=== PATIENT | female | born 1965 | race Two or more races ===

== ENCOUNTER 2025-09-06 15:59 | Inpatient (IN) | payer MEDICAID, SELFPAY ==
[2025-09-06 16:47] VITALS: BP 94/61; PULSE 89; RESP 20; TEMP 37.7; O2SAT 98; BMI 25.0
--- NOTE | 2025-09-06 17:53 | EKG_ITS ---
[facility] Test Date: 2025-09-06 Pat Name: NARGIS CABRALES Department: Room: - Gender: Female Digital Designer: : 1965 Requested By: Ashley Valdez Order Number: [id number] Reading MD: Ashley Valdez Measurements Intervals Lyman Rate: 86 P: 49 CO: 134 QRS: 65 QRSD: 89 T: 59 QT: 335 QTc: 401 Interpretive Statements SINUS RHYTHM Compared to ECG 04/07/2022 22:22:05 No significant changes /store/S0/[id number].pdf
--- NOTE | 2025-09-06 17:53 | XR_ITS ---
EXAMINATION: AP chest single view TECHNIQUE: AP portable semiupright chest single view Date and time: September 06, 2025, 1844 hours, comparison April 07, 2022 INDICATION: Chest pain shortness of breath today. FINDINGS: Normal heart size Mild elevation right hemidiaphragm. No lobar pneumonia or pulmonary edema Prominent osteopenia The chest film is lordotic IMPRESSION: No lobar pneumonia or pulmonary edema
--- NOTE | 2025-09-06 17:55 | PD.EDURI ---
Upper Respiratory Inf. RME/HPI General Chief Complaint: Flu Like Symptoms Stated Complaint: ABD PAIN , N/V CHILLS, DIARRHEA, HEADACHE X 2 DAYS Time Seen by Provider: 09/06/25 17:38 Arrival date/time: 09/06/25 15:59 60-year-old female patient with significant history of hypertension, came in for evaluation regarding lower abdominal pain, fever chills diarrhea headache generalized weakness cannot take anything down severity moderate. Denies any blood in the stool denies any cough denies any other complaints Related Data Previous Rx's ?Medication ?Instructions ?Recorded sulfamethoxazole 800 1 tab PO BID #14 tabs 05/28/21 mg-trimethoprim 160 mg tablet (Bactrim DS) Allergies Allergy/AdvReac Type Severity Reaction Status Date / Time No Known Allergies Allergy Verified 09/06/25 16:01 Review of Systems Review of Systems Narrative Review of Systems: Review of system reviewed and within normal limits except mentioned in HPI ED Exam Narrative Physical exam: VITAL SIGNS: Reviewed. GENERAL APPEARANCE: Alert and interactive, follows commands, no acute distress, HEAD AND FACE: Non-traumatic. ENT: PERRL, pink conjunctivitis, eyelid no trauma, Mucous membrane moist. NECK: Supple, nontender, no nuchal rigidity. CHEST: No tenderness, no crepitus, no paradoxical movement, no retractions. LUNGS: Clear, well ventilated, symmetric, no rales, no wheezing, no ronchi, no stridor, good breath sounds bilaterally. HEART: Regular rate, regular rhythm, no murmur, no gallops. ABDOMEN: Soft, positive bowel sounds, nondistended, no guarding, diffuse tenderness, no rebound, no masses, RECTAL: Deferred. GENITAL: Deferred. NEUROLOGICAL: Gross motor function intact sensory function intact, Appropriate for age. MUSCULOSKELETAL: low back nontender, full range of motion. EXTREMITIES: Nontender, full range of motion. SKIN: Color pink, dry, no rash, no lacerations, no abrasions, no contusions. LYMPHATICS: Deferred. Course Quality Measures none Orders Category Date Time Status COVID-19 Screening Questionnaire NOW Care 09/06/25 22:[address] Screening NOW Care 09/06/25 18:06 Active Decision to Admit X1 Care 09/06/25 22:17 Active EKG (ED ONLY) *Do not use* NOW Care 09/06/25 17:54 Completed Fluid restriction QSHIFT Care 09/06/25 18:46 Active Insert IV NOW Care 09/06/25 18:[address] chest abdomen pelvis wo Stat Exams 09/06/25 18:41 Completed EKG (ED Only) Stat Exams 09/06/25 17:53 Draft XR chest 1V Stat Exams 09/06/25 17:53 Completed CBC Stat Lab 09/06/25 18:02 Completed Comprehensive Metabolic Panel Stat Lab 09/06/25 18:02 Completed Creatinine,Random Urine Stat Lab 09/06/25 21:22 Completed Electrolytes, Urine Random Stat Lab 09/06/25 21:22 Completed Hemoglobin A1C [Glycohemoglobin w (eAG)] Stat Lab 09/06/25 22:08 Received Osmolality, Urine* Routine Lab 09/06/25 21:22 Received Partial Thromboplastin Time Stat Lab 09/06/25 18:02 [address] Review Blood Smear Stat Lab 09/06/25 18:02 Completed T4 (Thyroxine) Stat Lab 09/06/25 18:02 Completed Thyroid Stimulating Hormone Stat Lab 09/06/25 18:02 Completed Troponin I Stat Lab 09/06/25 18:02 Completed Troponin I Stat Lab 09/06/25 22:08 Received Urinalysis, C/S if Indicated Stat Lab 09/06/25 21:22 Completed Urine Culture Stat Lab 09/06/25 21:22 Received Ondansetron Inj [Zofran Inj] Med 09/06/25 17:53 Discontinued 4 mg IVP X1 ONE Piper/Tazo 3.375 gm Premix [Zosyn] Med 09/06/25 18:49 Discontinued 3.375 gm in 50 ml IV X1 Ringers Lactated 1000 ml [Lactated Ringers] 1,000 ml Med 09/06/25 17:54 Discontinued IV 999 mls/hr Sodium Chloride 0.9% 1000 ml [Ns] 1,000 ml Med 09/06/25 20:55 Active IV 125 mls/hr Sodium Chloride 0.9% 1000 ml [Ns] 1,000 ml Med 09/06/25 18:41 Discontinued IV 999 mls/hr Vital Signs Vital signs: Vital Signs Temperature 100 F 09/06/25 16:47 Pulse Rate 89 09/06/25 16:47 Respiratory Rate 20 09/06/25 16:47 Blood Pressure 94/61 09/06/25 16:47 Pulse Oximetry (%) 98 09/06/25 16:47 Oxygen Delivery Method Room Air 09/06/25 16:47 Upper Respiratory Infection MDM Narrative MDM Narrative:: 60-year-old female patient with significant history of hypertension, came in for evaluation regarding lower abdominal pain, fever chills diarrhea headache generalized weakness cannot take anything down severity moderate. Denies any blood in the stool denies any cough denies any other complaints Sepsis alert was initiated due to leukocytosis, low-grade fever, UTI EKG shows sinus rhythm, ventricular rate of 86 bpm, no ST segment elevation or depression noted. CBC significant for leukocytosis 36.7, hemoglobin 10.9 hematocrit 29.9 platelet count 104 neutropenia of 88% creatinine was noted to be 3.0, glucose of 342, sodium of 118 corrected sodium 122. I personally reviewed and interpreted the x-ray of this patient. There is no acute abnormalities found, no infiltrates no pneumothorax no hemothorax normal chest x-ray. Review of other structures was without significant abnormal findings also. I additionally reviewed the radiologist report and agree with the interpretation. CT scan of the abdomen pelvis showed Small calcified right thyroid nodules No mediastinal lymphadenopathy No pneumonia or pulmonary edema Recommend hepatobiliary sonography to exclude gallstones 2 mm nonobstructing right renal calculus Perinephric stranding consider urinary tract infection Normal appendix No bowel obstruction Thickening of the urinary bladder wall, differential would include cystitis Patient was given 1 L IV LR, and was also given IV Zosyn. Currently on maintenance IV NS at 125 mL an hour. Plan of care discussed with the patient family who advised to be admitted. Case discussed with hospitalist, who admitted the patient. Patient data External records reviewed:: None Clinical information provided by:: patient and family Social determinants that could affect healthcare access:: none Patient has the following chronic illnesses:: Hypertension How is presenting disease/condition affected by chronic disease/condition?: exacerbated by Evaluation data The following diagnostics were reviewed and interpreted by me:: lab results, radiology exam(s) and EKG tracing(s) Lab and/or radiology exams considered but not ordered:: None Interpretation Summary: See above Medications / Prescriptions Medications or Prescriptions considered but not ordered:: None Medication administrations:: Medication Administration History Sodium Chloride (Ns) 1,000 mls @ 125 mls/hr IV .Q8H TEJAS Stop: 10/06/25 20:54 Last Admin: 09/06/25 21:22 Dose: 125 mls/hr Documented By: CHARLES Discontinued Medications Lactated Ringer's (Lactated Ringers) 1,000 mls @ 999 mls/hr IV .Q1H1M ONE Stop: 09/06/25 18:54 Last Infusion: 09/06/25 19:22 Dose: Infused Documented By: Admin: 09/06/25 18:19 Dose: 999 mls/hr Documented By: MEAGAN Sodium Chloride (Ns) 1,000 mls @ 999 mls/hr IV .Q1H1M ONE Stop: 09/06/25 19:41 Last Admin: 09/06/25 18:55 Dose: Not Given Documented By: ELIEL Non-Admin Reason: Cancelled by Provider Piperacillin/Tazobactam/Dextrose (Zosyn) 3.375 gm in 50 mls @ 100 mls/hr IV X1 ONE; Protocol Stop: 09/06/25 19:18 Last Infusion: 09/06/25 20:03 Dose: Infused Documented By: Admin: 09/06/25 18:56 Dose: 100 mls/hr Documented By: ELIEL Ondansetron HCl (Ondansetron Inj 2 Mg/Ml Inj 2 Ml) 4 mg IVP X1 ONE; Protocol Stop: 09/06/25 17:54 Last Admin: 09/06/25 18:17 Dose: 4 mg Documented By: MEAGAN See above Consultations Consultation(s) initiated? (list below): No Diagnosis Upper Respiratory Differential Diagnosis: upper respiratory infection, viral infection and other (Sepsis, UTI, hyponatremia) Most likely diagnosis given after review of the tests above:: CHRISTINE, hyponatremia, sepsis, UTI Admission Indicated Admission indicated?: indicated Admission Request Was there a request for admission?: Yes Admission Attestation Admission request attestation: Discussed case with [Dr. Rocha] from Hospitalist service regarding admission. Discussed patients ED course, exam findings, labs, and radiology results. The Hospitalist [agrees,] to accept the patient for admission. Disposition Plan Disposition Plan: Admit Discharge Plan Plan Patient Disposition: Admit Acute Care w/in Hospital Discharge Disposition comment: Stable Prescriptions/Referrals Prescriptions/Med Rec: No Action sulfamethoxazole-trimethoprim [Bactrim DS] 800-160 mg tablet 1 tab PO BID Qty: 14 0RF Referrals: No Primary/Family,Physician [Primary Care Provider] - In 1 week Problem List Clinical Impression: Sepsis, UTI (urinary tract infection), Acute hyponatremia Patient/Caregiver Discharge Instructions Print Language: Citizen Of [place] Stand Alone Forms: Heather Award Info., Patient Portal Info Letter
[2025-09-06] MEDS: ONDANSETRON INJ 2 MG/ML INJ 2 ML 4 MG IVP (18:17)
[2025-09-06 18:18] LABS: Basophils # (Auto) 0.0 Thou/mm3 (0.0-0.2); Basophils % (Auto) 0 % (0-2.5); Eosinophils # (Auto) 0.0 Thou/mm3 (0.0-0.5); Eosinophils % (Auto) 0 % (0-10); Hematocrit 29.9 % (36.0-46.0); Hemoglobin 10.9 g/dL (12.0-16.0); Immature Granulocytes Auto 1.99 Thou/mm3 (0.00-0.00); Lymphocytes # (Auto) 0.8 Thou/mm3 (1.0-4.8); Lymphocytes % (Auto) 2 % (10-50); Mean Corpuscular HGB Conc 36.5 g/dl (31.0-37.0); Mean Corpuscular Hemoglobin 32.1 pg (25.0-35.0); Mean Corpuscular Volume 88 fL (80-100); Monocytes # (Auto) 1.7 Thou/mm3 (0.0-0.8); Monocytes % (Auto) 5 % (0-12); Neutrophils # (Auto) 32.3 Thou/mm3 (1.8-7.7); Neutrophils % (Auto) 88 % (37-80); Nucleated Red Blood Cell # 0.02 Thou/mm3 (0.00-0.00); Nucleated Red Blood Cell % 0 /100 WBC (0); Platelet Count 104 Thou/mm3 (140-440); RDW Standard Deviation 36.9 fL (36.4-46.3); Red Blood Count 3.40 Miln/mm3 (4.00-5.20)
[2025-09-06] MEDS: RINGERS LACTATED 1000 ML 1,000 ML 999 ML IV (18:19)
[2025-09-06 18:24] LABS: Partial Thromboplastin Time 36.4 Seconds (22.0-36.0)
[2025-09-06 18:27] LABS: White Blood Count 36.7 Thou/mm3 (3.6-11.0)
[2025-09-06 18:30] LABS: Path Review Blood Smear Sent to Pathologist
[2025-09-06 18:31] LABS: Alanine Aminotransferase 14 U/L (10-49); Albumin, Serum 3.5 gm/dL (3.4-4.8); Albumin/Globulin Ratio 1.5 (1.2-2.2); Alkaline Phosphatase 102 U/L (46-116); Anion Gap 12 (7-16); Aspartate Amino Transferase 21 U/L (0-34); BUN/Creatinine Ratio 15 Ratio (12-20); Bilirubin,Total 0.6 mg/dL (0.3-1.2); Blood Urea Nitrogen 45 mg/dL (9-23); Calcium 8.4 mg/dL (8.3-10.6); Calcium (Corrected) 8.8 mg/dL (8.5-10.1); Carbon Dioxide 21.5 mMol/L (20.0-31.0); Chloride 85 mMol/L (98-107); Creatinine (Component) 3.0 mg/dL (0.6-1.3); Estimated Creatinine Clearance 15.9 mL/min (>60); Globulin 2.4 gm/dL (2.3-3.5); Glucose 342 mg/dL (74-106); Osmolality,Calculated 263 (275-295); Potassium 5.1 mMol/L (3.4-5.1); Total Protein 5.9 gm/dL (5.7-8.2); eGFR 17 See Note
[2025-09-06 18:35] LABS: Sodium 118 mMol/L (136-145); Troponin I 0.095 ng/mL (0.0-0.045)
--- NOTE | 2025-09-06 18:41 | XR_ITS ---
Examination: CT chest, without intravenous contrast. CT abdomen, without intravenous contrast. CT pelvis, without intravenous contrast. 2-D sagittal and coronal reconstructions. 3-D reconstructions. Date and time of exam: September 06, 2025, 1905 hours INDICATIONS: Chest and abdominal pain CTDI vol (mgy) 5.90 DLP (MGycm) 404 Technique: Multiple CT images, 3.0 mm slice thickness, obtained chest, abdomen, pelvis, with the high-resolution 64 slice scanner.. Sagittal and coronal 2-D reconstructions are obtained. 3-D reconstructions Low dose protocols were performed. One or more of the following dose reduction techniques were used; automated exposure control, adjustment of the mA and/or KV according to patient size, use of iterative reconstruction technique. Findings: Small calcified right thyroid nodules Thoracic aorta pulmonary arteries intact No paratracheal tracheobronchial or bronchopulmonary adenopathy Pulmonary edema or pleural disease Visualized liver splenic lesion Suspicious for gallstones No pancreatic or adrenal mass Perinephric stranding 2 mm mid right renal calculus coronal image 8 No ureteral calculi Aorta normal size No bowel obstruction Normal appendix No diverticulitis Thickened urinary bladder wall Colonic diverticulosis no diverticulitis No pelvic mass Advanced degenerative disc disease L5-S1 IMPRESSION: Small calcified right thyroid nodules No mediastinal lymphadenopathy No pneumonia or pulmonary edema Recommend hepatobiliary sonography to exclude gallstones 2 mm nonobstructing right renal calculus Perinephric stranding consider urinary tract infection Normal appendix No bowel obstruction Thickening of the urinary bladder wall, differential would include cystitis
[2025-09-06] MEDS: PIPER/TAZO 3.375 GM PREMIX 3.375 GM/50 ML BAG IV (18:56)
[2025-09-06 19:21] VITALS: BP 100/55; PULSE 90; RESP 17; TEMP 37.1; O2SAT 99
[2025-09-06 19:52] LABS: Thyroid Stimulating Hormone 2.58 uIU/mL (0.55-4.78)
[2025-09-06 21:17] LABS: T4 (Thyroxine) 10.5 mcg/dL (4.5-10.9)
[2025-09-06] MEDS: SODIUM CHLORIDE 0.9% 1000 ML 1,000 ML 125 ML IV (21:22)
[2025-09-06 21:27] VITALS: BP 110/57; PULSE 86; RESP 18; TEMP 37.4; O2SAT 98
[2025-09-06 21:41] LABS: Collection Type, Urine Clean Catch
[2025-09-06 21:54] LABS: Chloride,Urine Random 22.6 mMol/L (55.0-125.0); Creatinine,Random Urine 176 mg/dL (30-125); Potassium,Urine Random 51 mMol/L (12-62); Sodium,Urine Random 32.4 mMol/L (20.0-110.0)
[2025-09-06 22:08] LABS: Amorphous Crystals,Urine Present (Absent); Bacteria,Urine 4+; Bilirubin,Urine Negative (Negative); Blood,Urine 2+ (Negative); Budding Yeast,Urine Present; Color,Urine Yellow (Lt Yel-Yel); Glucose, Urine Trace (Negative); Hyaline Casts,Urine 4 /hpf (0-1); Ketones,Urine Negative (Negative); Leukocyte Esterase,Urine Positive (Negative); Nitrite,Urine Negative (Negative); PH,Urine 6.0 (5.0-7.0); Protein,Urine 2+ (Neg - Trace); RBC,Urine 24 /hpf (0-3); Specific Gravity,Urine 1.018 (1.001-1.035); Squamous Epithelial Cell,Urine 5 /hpf (0-5); Urobilinogen,Urine 2.0 mg/dL (0.0-1.0); WBC,Urine 841 /hpf (0-5)
[2025-09-06 22:09] LABS: Clarity,Urine Turbid (Clear/Hazy); Culture Indicated,Urine Yes
[2025-09-06 22:34] LABS: Glucose Estimated Average 206 mg/dL (80-131); Hemoglobin A1C 8.8 % Hgb (4.8-6.0)
--- NOTE | 2025-09-06 22:41 | XR_ITS ---
Examination: Abdomen sonogram, Limited Date and time of exam: September 07, 2025, 0030 hours INDICATIONS: Upper abdominal pain and tenderness today Technique: Real-time rodriguez scale transabdominal sonographic images of the upper abdomen obtained. Findings: Gallbladder sludge Gallbladder wall 0.25 cm no edema Common bile duct 0.3 cm Pancreatic head 1.7 cm Liver 18.2 cm fatty infiltration Normal hepatopetal portal venous flow Patent IVC IMPRESSION: Gallbladder sludge, negative for cholelithiasis, negative for cholecystitis Normal common bile duct Moderate hepatomegaly fatty infiltration no focal liver lesions
[2025-09-06 22:43] LABS: Troponin I 0.082 ng/mL (0.0-0.045)
--- NOTE | 2025-09-06 22:50 | PD.RESHP ---
Documentation for date of: 09/06/25 HPI History of Present Illness History of present illness: 60-year-old female patient with significant history of hypertension, came in for evaluation regarding lower abdominal pain, fever chills diarrhea headache generalized weakness. Patient admitted for sepsis workup and UTI antibiotics. ED Course Summary Vitals: BP 94/61 HR 89 RR 20 T 100F O2 sat 98%RA Labs: WBC 36.7 Hgb 10.9 Plt 104 APTT 36.4 Na 118 Cl 85 HCO3 21.5 AG 12 CrCl 15.9 Glucose 342 Calculated osmolality 263 troponins 0.095 TSH 2.58 UA yellow, turbid protein +2 Blood +2 LE + RBC 24 WBC 841 Bacteria +4 Hyaline 4 Yeast +, Ur random creatinine 176 Ur random sodium 32.4 Ur random K 51 Ur random chlorine 22.6 Imaging: EKG sinus rhythm Rate 86 QTc 401 CXR no lobar pneumonia or pulmonary edema CTAP Small calcified right thyroid nodules. No mediastinal lymphadenopathy. No pneumonia or pulmonary edema. Recommend hepatobiliary sonography to exclude gallstones. 2 mm nonobstructing right renal calculus. Perinephric stranding consider urinary tract infection. Normal appendix. No bowel obstruction. Thickening of the urinary bladder wall, differential would include cystitis Treatment: NaCl 2L, LR 1L, zofran Upon initial review patient confirmed story from ED. States she has had 3 days of headaches, +NVD and chills with foul smelling urine. Her weight is 128lbs or 58.088kg at baseline. Denies any blood in the stool denies any cough denies any other complaints. Has not been able to receive her metformin medication for 2-3 months. Code: Full Insulin: None Medical Hx: HTN, diabetes (metformin not on insulin) Medications: Has not been able to refill metformin for 2-3 months Allergies: None Alcohol: Denies Cigarettes/tobacco: Denies Recreational drugs: Denies Patient admitted for: Sepsis r/o 2/2 UTI All 12 systems reviewed and were negative except otherwise stated in HPI. Exam Vital Signs Temp Pulse Resp BP Pulse Ox O2 Del Method 99.3 F 86 18 110/57 L 98 Room Air 09/06/25 21:27 09/06/25 21:27 09/06/25 21:27 09/06/25 21:27 09/06/25 21:27 09/06/25 21:27 Narrative Exam GENERAL APPEARANCE: AOx3. NAD, activity normal for age, well developed/ well nourished, no cyanosis, pallor, or diaphoresis. HEENT: Normocephalic atraumatic, no facial trauma, neck is supple. Lids/conjunctiva normal. Mucous membranes moist, nares normal, lips/teeth normal uvula midline without oral pharyngeal erythema, exudate or swelling TMs normal bilaterally. No lymphangitis/lymphedema. CARDIAC: Tachycardic, S1+S2 heard. No murmurs, rubs, or gallops noted RESPIRATORY: respiratory effort normal, speaks in full sentences, no tripod position, no accessory muscle use. Lungs clear to auscultation without rhonchi, wheezes, rales ABDOMINAL: NBS. Soft, ND diffuse TTP. No evidence of fluid wave. No pulsatile masses on exam, rebound tenderness or pain over Mcburney's point. Shaw sign+ MUSCLES/EXTREMITIES: No abnormal range of motion, no swelling. DERM: Warm, pink and dry. No rashes, dermatoses, petechiae or lesions. NEUROLOGICAL: Speech is clear and appropriate. Normal level of consciousness. Gait and coordination are normal. 5/5 strength in all extremities. PSYCH: Normal mood and affect. Judgement/competence is appropriate : +CVA tenderness no nausea from CVA tapping Results: Labs 09/06/25 18:02 09/06/25 23:25 Labs: Short CBC 09/06/25 Range/Units 18:02 WBC 36.7 H* (3.6-11.0) Thou/mm3 Hgb 10.9 L (12.0-16.0) g/dL Hct 29.9 L (36.0-46.0) % Plt Count 104 L (140-440) Thou/mm3 BMP 09/06/25 18:02 Sodium 118 L* Potassium 5.1 Chloride 85 L Carbon Dioxide 21.5 BUN 45 H Creatinine 3.0 H Glucose 342 H Calcium 8.4 Cardiac Enzymes 09/06/25 09/06/25 Range/Units 18:02 22:08 Troponin I 0.095 H* 0.082 H* (0.0-0.045) ng/mL Liver Function 09/06/25 Range/Units 18:02 Total Bilirubin 0.6 (0.3-1.2) mg/dL AST 21 (0-34) U/L ALT 14 (10-49) U/L Alkaline Phosphatase 102 (46-116) U/L Albumin 3.5 (3.4-4.8) gm/dL Urine 09/06/25 Range/Units 21:22 Urine Color Yellow (Lt Yel-Yel) Urine Clarity Turbid A (Clear/Hazy) Urine pH 6.0 (5.0-7.0) Ur Specific [place] 1.018 (1.001-1.035) Urine Protein 2+ A (Neg - Trace) Urine Glucose (UA) Trace (Negative) Quality Measures Quality Measures VTE prophylaxis Medications Home Medications and Allergies Home Medications ?Medication ?Instructions ?Recorded ?Confirmed ?Type metformin 1,000 mg tablet,extended 1,000 mg PO BID 09/07/25 09/07/25 History release 24hr (osmotic) (Fortamet) Allergies Allergy/AdvReac Type Severity Reaction Status Date / Time No Known Allergies Allergy Verified 09/06/25 16:01 Visit Medications Sodium Chloride (Ns) 1,000 mls @ 125 mls/hr IV .Q8H TEJAS Stop: 10/06/25 20:54 Last Admin: 09/06/25 21:22 Dose: 125 mls/hr Discontinued Medications Lactated Ringer's (Lactated Ringers) 1,000 mls @ 999 mls/hr IV .Q1H1M ONE Stop: 09/06/25 18:54 Last Infusion: 09/06/25 19:22 Dose: Infused Sodium Chloride (Ns) 1,000 mls @ 999 mls/hr IV .Q1H1M ONE Stop: 09/06/25 19:41 Last Admin: 09/06/25 18:55 Dose: Not Given Piperacillin/Tazobactam/Dextrose (Zosyn) 3.375 gm in 50 mls @ 100 mls/hr IV X1 ONE; Protocol Stop: 09/06/25 19:18 Last Infusion: 09/06/25 20:03 Dose: Infused Ondansetron HCl (Ondansetron Inj 2 Mg/Ml Inj 2 Ml) 4 mg IVP X1 ONE; Protocol Stop: 09/06/25 17:54 Last Admin: 09/06/25 18:17 Dose: 4 mg Assessment & Plan Plan 60-year-old female patient with significant history of hypertension, came in for evaluation regarding lower abdominal pain, fever chills diarrhea headache generalized weakness. Patient admitted for sepsis workup and UTI antibiotics. #Sepsis #Acute cystitis/ UTI #Lactic acidosis Sepsis due to UTI with acute sepsis-related organ dysfunction as evidence by creatinine 3.0 HR>90 WBC >12,000 and lactic acidosis. 3 days of lower abdominal pain, fever chills diarrhea headache generalized weakness. Patient had diffuse abdominal tenderness and CVA tenderness on exam without nausea. CBC WBC 36.7 Lactic acid 2.3. UA yellow, turbid protein +2 Blood +2 LE + RBC 24 WBC 841 Bacteria +4 Hyaline 4 Yeast +. CTAP 2 mm nonobstructing right renal calculus. Perinephric stranding consider urinary tract infection. Thickening of the urinary bladder wall. Given IV fluids in ED Plan: -FUP urine cx:___ -FUP blood cx:___ -FUP peripheral blood smear:____ -FUP cocci:____ -IV Antibiotics Ceftriaxone 1 g IV QD -IVF miantenance -Bladder scans PRN #CHRISTINE #Hyperuremia #Hypo-osmolar hyponatremia Cr 3.0, Na 118 --> corrected sodium 122mEq/L per Cullen, 1973 vs 124 mEq/L Carmen, 1999) Osmolality 263 (L). Ur random creatinine 176 Ur random sodium 32.4 Ur random K 51 Ur random chlorine 22.6. Most likely secondary to intractable vomiting and diarrhea over the last 3 days. Plan: -Na checks Q4H -IVF maintenance -Goal to correct 6-8 mEq/L over 24 hours: goal is corrected Na of 130. -Continue maintenance IVF #NSTEMI type II- resolved Most likely secondary to demand ischemia. Trops 0.095 --> 0.082 #Hyperglycemia #Hx of T2DM not on insulin Glucose 342. Not taking her metformin for 2-3 months. NVD and headaches could be due to uncontrolled diabetes. Will treat sepsis and make diagnostic indication pending resolution of symptoms with antibiotics vs. diabetes management. Plan: -ISS step 2 -Bedside glucose ACHS #Thrombocytopenia Platelets 104. Plan: -CTM CBC -Hold heparin if platelets >50 or uncontrollable bleeding. #Small calcified R thyroid nodule (incidental finding on CTAP) Plan: -FUP outpatient Health Maintenance: Code status: Full DVT prophylaxis: Heparin subq GI prophylaxis: Famotidine Diet: Carb consistent Sánchez: No Lines: PIV Supplemental O2: NC Disposition: Tele for sepsis 2/2 UTI most likely Patient seen and reviewed with attending Dr. Gonzalez. Note written by Wilman Rocha MD PGY-1 Attending Provider Attestation/Addendum After examination of the patient and review of the clinical data I feel that this patient needs admission to the hospital for further treatment/evaluation. Plan of care discussed with patient and is in agreement. I Ryan Gonzalez MD, attest that I was physically present for manzano portions of evaluation, and examined patient, labs and imagings and plan of care were discussed with IM residents team, and I agree with the findings and plans documented above.
[2025-09-06 23:31] VITALS: BP 123/71; PULSE 92; RESP 16; TEMP 37.1; O2SAT 93
[2025-09-06 23:36] LABS: Lactate (Lactic Acid) 2.3 mMol/L (0.4-2.0)
[2025-09-06 23:53] LABS: Anion Gap 9 (7-16); BUN/Creatinine Ratio 14 Ratio (12-20); Blood Urea Nitrogen 41 mg/dL (9-23); Calcium 8.7 mg/dL (8.3-10.6); Carbon Dioxide 21.3 mMol/L (20.0-31.0); Chloride 88 mMol/L (98-107); Creatinine (Component) 2.9 mg/dL (0.6-1.3); Estimated Creatinine Clearance 16.5 mL/min (>60); Glucose 306 mg/dL (74-106); Osmolality,Calculated 260 (275-295); Potassium 5.1 mMol/L (3.4-5.1); eGFR 18 See Note
[2025-09-06 23:56] LABS: Sodium 118 mMol/L (136-145)
[2025-09-07] VITALS (11 sets, daily range): BP systolic 102–142; BP diastolic 48–77; PULSE 83–101; RESP 16–96; TEMP 36.4–36.8; O2SAT 90–100; BMI 24.5
[2025-09-07] MEDS: SODIUM CHLORIDE 0.9% 1000 ML 1,000 ML 999 ML IV (00:07)
[2025-09-07] MEDS: cefTRIAXone/D5w 1gm IV premix 1 GM/50 ML BAG IV (01:13)
[2025-09-07 01:43] LABS: Sodium 119 mMol/L (136-145)
--- NOTE | 2025-09-07 01:44 | PRELIM_ITS ---
Gallbladder ultrasound. September 07, 2025 0033 hours Clinical history: Shaw sign + Comparison: No prior study available for comparison at the time of interpretation. Findings: There is mild hepatomegaly. The liver demonstrates mild heterogeneous increased echogenicity, consistent with fatty infiltration. The common duct is normal in caliber at 3.0 mm. There is minimal gallbladder sludge. The gallbladder wall measures 3 mm (upper limits of normal). No obvious pericholecystic fluid or biliary obstruction at this time. The pancreas is unremarkable to the extent visualized. The inferior vena cava and aorta are unremarkable to the extent visualized. Impression: 1. Gallbladder sludge with mild wall thickening. Possibility of acute cholecystitis can be considered In the appropriate clinical setting. 2. Mild hepatomegaly with fatty liver. 3. Other findings as described above. Suggest clinical correlation and follow up accordingly. Report Electronically Signed By: Domenico Norman 09/07/2025 1:43:52 AM [EST]
[2025-09-07 02:30] LABS: Reflex Lactate? Y
[2025-09-07 05:45] LABS: Lactic Acid, 3 HR 2.0 mMol/L (0.4-2.0)
[2025-09-07 05:53] LABS: Basophils # (Auto) 0.0 Thou/mm3 (0.0-0.2); Basophils % (Auto) 0 % (0-2.5); Eosinophils # (Auto) 0.0 Thou/mm3 (0.0-0.5); Eosinophils % (Auto) 0 % (0-10); Hematocrit 27.9 % (36.0-46.0); Hemoglobin 10.2 g/dL (12.0-16.0); Immature Granulocytes Auto 0.85 Thou/mm3 (0.00-0.00); Lymphocytes # (Auto) 0.7 Thou/mm3 (1.0-4.8); Lymphocytes % (Auto) 2 % (10-50); Mean Corpuscular HGB Conc 36.6 g/dl (31.0-37.0); Mean Corpuscular Hemoglobin 32.2 pg (25.0-35.0); Mean Corpuscular Volume 88 fL (80-100); Monocytes # (Auto) 1.2 Thou/mm3 (0.0-0.8); Monocytes % (Auto) 3 % (0-12); Neutrophils # (Auto) 33.2 Thou/mm3 (1.8-7.7); Neutrophils % (Auto) 92 % (37-80); Nucleated Red Blood Cell # 0.00 Thou/mm3 (0.00-0.00); Nucleated Red Blood Cell % 0 /100 WBC (0); RDW Standard Deviation 36.9 fL (36.4-46.3); Red Blood Count 3.17 Miln/mm3 (4.00-5.20)
[2025-09-07 05:54] LABS: White Blood Count 35.9 Thou/mm3 (3.6-11.0)
[2025-09-07 06:23] LABS: Alanine Aminotransferase 13 U/L (10-49); Albumin, Serum 3.1 gm/dL (3.4-4.8); Albumin/Globulin Ratio 1.3 (1.2-2.2); Alkaline Phosphatase 91 U/L (46-116); Anion Gap 12 (7-16); Aspartate Amino Transferase 20 U/L (0-34); BUN/Creatinine Ratio 18 Ratio (12-20); Bilirubin,Total 0.5 mg/dL (0.3-1.2); Blood Urea Nitrogen 51 mg/dL (9-23); Calcium 8.2 mg/dL (8.3-10.6); Calcium (Corrected) 8.9 mg/dL (8.5-10.1); Carbon Dioxide 18.4 mMol/L (20.0-31.0); Chloride 92 mMol/L (98-107); Creatinine (Component) 2.8 mg/dL (0.6-1.3); Estimated Creatinine Clearance 18.4 mL/min (>60); Globulin 2.3 gm/dL (2.3-3.5); Glucose 291 mg/dL (74-106); Magnesium 1.6 mg/dL (1.6-2.6); Osmolality,Calculated 270 (275-295); Phosphorous 2.7 mg/dL (2.4-5.1); Potassium 4.8 mMol/L (3.4-5.1); Sodium 122 mMol/L (136-145); Total Protein 5.4 gm/dL (5.7-8.2); eGFR 19 See Note
[2025-09-07] MEDS: SODIUM CHLORIDE 0.9% 1000 ML 1,000 ML 125 ML IV (06:38)
[2025-09-07 07:33] LABS: Platelet Count 83 Thou/mm3 (140-440)
[2025-09-07 07:34] LABS: Path Review Blood Smear Sent to Pathologist; Slide Review Platelets confirmed
[2025-09-07] MEDS: INSULIN LISPRO (AdmeLOG) 1 UNIT/0.01 ML UNIT SC ×2 (07:43→12:22)
[2025-09-07] MEDS: FAMOTIDINE INJ 10 MG/ML VIAL 2 ML 20 MG IVP ×2 (08:59→20:17)
[2025-09-07] MEDS: DOCUSATE SOD 100 MG CAPSULE PO (08:59)
[2025-09-07] MEDS: HEPARIN SOD INJ 5000 UNIT/ML VIAL SC ×2 (09:00→20:17)
[2025-09-07] MEDS: INSULIN DEGLUDEC 5 UNIT/0.05 ML (PER 5 UNITS) 14 UNIT SC (09:00)
[2025-09-07 11:21] LABS: Sodium 124 mMol/L (136-145)
--- NOTE | 2025-09-07 11:34 | ESPR_ITS ---
Documentation for date of: 09/07/25 Subjective Subjective Interval history: No overnight events. Patient was examined at bedside; they appear A&Ox3 and in NAD. Today, she endorses symptoms of diarrhea, N/V, abdominal pain, and dysuria but says that they are markedly improved from how they were upon admission. Vitals/labs today significant for WBC 36.7->35.9, hemoglobin 10.2, platelet count 104->83, sodium 119->122, potassium 5.1->4.8, bicarbonate 21.3->18.4, BUN 41->51, creatinine 2.9->2.8, glucose 291, hemoglobin A1c 8.8, lactic acid 2.3- >2.0, magnesium 1.6, troponin 0.095->0.082, TSH & T4 WNL. Physical exam showed mild suprapubic tenderness but was otherwise non-contributory. 09/06 UA was suggestive of UTI. 09/06 CXR and EKG unremarkable. 09/06 CTAP showed small calcified right thyroid nodules, 2 mm non-obstructing right renal calculus, perinephric stranding and thickening of urinary bladder wall. 09/06 gallbladder US showed moderate hepatomegaly with fatty infiltration and gallbladder sludge but was otherwise negative. Overall, patient seems clinically improved. Due to the presence of yeast in patient's UA, she will be given fluconazole 400 mg PO x 1. Patient's leukocytosis seems disproportionately high even in the setting of acute infection and it occurs in the setting of anemia and thrombocytopenia; thus, we are awaiting the result of 09/06 peripheral blood smear to rule out any malignant etiologies. Otherwise, patient's hyponatremia has resolved, troponin has down-trended, and she will continue to receive Rocephin IV for treatment of her sepsis and UTI while being maintained on insulin sliding scale. Exam Vital Signs Temp Pulse Resp BP Pulse Ox O2 Del Method 97.5 F 95 16 123/70 95 Room Air 09/07/25 08:00 09/07/25 09:28 09/07/25 09:28 09/07/25 08:00 09/07/25 08:00 09/07/25 08:00 Narrative Exam GENERAL APPEARANCE: AOx3. NAD, activity normal for age, well developed/ well nourished, no cyanosis, pallor, or diaphoresis. HEENT: Normocephalic atraumatic, no facial trauma, neck is supple. Lids/conjunctiva normal. Mucous membranes moist, nares normal, lips/teeth normal uvula midline without oral pharyngeal erythema, exudate or swelling TMs normal bilaterally. No lymphangitis/lymphedema. CARDIAC: Tachycardic, S1+S2 heard. No murmurs, rubs, or gallops noted RESPIRATORY: respiratory effort normal, speaks in full sentences, no tripod position, no accessory muscle use. Lungs clear to auscultation without rhonchi, wheezes, rales ABDOMINAL: NBS. Soft, ND, mild tenderness to palpation of suprapubic region. No evidence of fluid wave. No pulsatile masses on exam, rebound tenderness or pain over Mcburney's point. Shaw Sign's (-) MUSCLES/EXTREMITIES: No abnormal range of motion, no swelling. DERM: Warm, pink and dry. No rashes, dermatoses, petechiae or lesions. NEUROLOGICAL: Speech is clear and appropriate. Normal level of consciousness. Gait and coordination are normal. 5/5 strength in all extremities. PSYCH: Normal mood and affect. Judgment/competence is appropriate : +CVA tenderness no nausea from CVA tapping Objective Labs 09/08/25 05:14 09/08/25 05:14 Labs: Laboratory Results - last 24 hr 09/06/25 09/06/25 09/06/25 18:02 21:22 22:08 WBC 36.7 H* RBC 3.40 L Hgb 10.9 L Hct 29.9 L MCV 88 MCH 32.1 MCHC 36.5 RDW Std Deviation 36.9 Plt Count 104 L Neut % (Auto) 88 H Lymph % (Auto) 2 L [place] % (Auto) 5 Eos % (Auto) 0 Baso % (Auto) 0 Neut # (Auto) 32.3 H Lymph # (Auto) 0.8 L [place] # (Auto) 1.7 H Eos # (Auto) 0.0 Baso # (Auto) 0.0 Immature Gran # (Auto) 1.99 H Absolute Nucleated RBC 0.02 H Immature Gran % 5 H Nucleated RBC % 0 Smear Path Review Sent to Pathologist APTT 36.4 H Sodium 118 L* Potassium 5.1 Chloride 85 L Carbon Dioxide 21.5 Anion Gap 12 BUN 45 H Creatinine 3.0 H Estim Creat Clear Calc 15.9 L eGFR 17 L BUN/Creatinine Ratio [address] Glu mg/dL 206 H Hemoglobin A1c 8.8 H Calculated Osmolality 263 L Lactic Acid Calcium 8.4 Corrected Calcium 8.8 Phosphorus Magnesium Total Bilirubin 0.6 AST 21 ALT 14 Alkaline Phosphatase 102 Troponin I 0.095 H* 0.082 H* Total Protein 5.9 Albumin 3.5 Globulin 2.4 Albumin/Globulin Ratio 1.5 TSH 2.58 Thyroxine (T4) 10.5 Ur Collection Type Clean Catch Urine Color Yellow Urine Clarity Turbid A Urine pH 6.0 Ur Specific [place] 1.018 Urine Protein 2+ A Urine Glucose (UA) Trace Urine Ketones Negative Urine Blood 2+ A Urine Nitrite Negative Urine Bilirubin Negative Urine Urobilinogen (Auto) 2.0 Ur Leukocyte Esterase Positive Urine RBC 24 H Urine WBC 841 H Ur Squamous Epith Cells 5 Amorphous Crystals Present A Urine Bacteria 4+ A Hyaline Casts 4 H Urine Yeast (Budding) Present A Ur Culture Indicated? Yes Ur Random Creatinine 176 H Ur Random Sodium 32.4 Ur Random Potassium 51 Ur Random Chloride 22.6 L Misc Test Result 09/06/25 09/06/25 09/07/25 23:25 23:25 05:00 WBC RBC Hgb Hct MCV MCH MCHC RDW Std Deviation Plt Count Neut % (Auto) Lymph % (Auto) [place] % (Auto) Eos % (Auto) Baso % (Auto) Neut # (Auto) Lymph # (Auto) [place] # (Auto) Eos # (Auto) Baso # (Auto) Immature Gran # (Auto) Absolute Nucleated RBC Immature Gran % Nucleated RBC % Smear Path Review Cancelled APTT Sodium 118 L* 119 L* Potassium 5.1 Chloride 88 L Carbon Dioxide 21.3 Anion Gap 9 BUN 41 H Creatinine 2.9 H Estim Creat Clear Calc 16.5 L eGFR 18 L BUN/Creatinine Ratio 14 Glucose [address] Glu mg/dL Hemoglobin A1c Calculated Osmolality 260 L Lactic Acid 2.3 H 2.0 Calcium 8.7 Corrected Calcium Phosphorus Magnesium Total Bilirubin AST ALT Alkaline Phosphatase Troponin I Total Protein Albumin Globulin Albumin/Globulin Ratio TSH Thyroxine (T4) Ur Collection Type Urine Color Urine Clarity Urine pH Ur Specific [place] Urine Protein Urine Glucose (UA) Urine Ketones Urine Blood Urine Nitrite Urine Bilirubin Urine Urobilinogen (Auto) Ur Leukocyte Esterase Urine RBC Urine WBC Ur Squamous Epith Cells Amorphous Crystals Urine Bacteria Hyaline Casts Urine Yeast (Budding) Ur Culture Indicated? Ur Random Creatinine Ur Random Sodium Ur Random Potassium Ur Random Chloride Misc Test Result 09/07/25 09/07/25 05:03 10:12 WBC 35.9 H* RBC 3.17 L Hgb 10.2 L Hct 27.9 L MCV 88 MCH 32.2 MCHC 36.6 RDW Std Deviation 36.9 Plt Count 83 L D Neut % (Auto) 92 H Lymph % (Auto) 2 L [place] % (Auto) 3 Eos % (Auto) 0 Baso % (Auto) 0 Neut # (Auto) 33.2 H Lymph # (Auto) 0.7 L [place] # (Auto) 1.2 H Eos # (Auto) 0.0 Baso # (Auto) 0.0 Immature Gran # (Auto) 0.85 H Absolute Nucleated RBC 0.00 Immature Gran % 2 H Nucleated RBC % 0 Smear Path Review Sent to Pathologist APTT Sodium 122 L 124 L Potassium 4.8 Chloride 92 L Carbon Dioxide 18.4 L Anion Gap 12 BUN 51 H Creatinine 2.8 H Estim Creat Clear Calc 18.4 L eGFR 19 L BUN/Creatinine Ratio 18 [address]ucose [address] Glu mg/dL Hemoglobin A1c Calculated Osmolality 270 L Lactic Acid Calcium 8.2 L Corrected Calcium 8.9 Phosphorus 2.7 Magnesium 1.6 Total Bilirubin 0.5 AST 20 ALT 13 Alkaline Phosphatase 91 Troponin I Total Protein 5.4 L Albumin 3.1 L Globulin 2.3 Albumin/Globulin Ratio 1.3 TSH Thyroxine (T4) Ur Collection Type Urine Color Urine Clarity Urine pH Ur Specific [place] Urine Protein Urine Glucose (UA) Urine Ketones Urine Blood Urine Nitrite Urine Bilirubin Urine Urobilinogen (Auto) Ur Leukocyte Esterase Urine RBC Urine WBC Ur Squamous Epith Cells Amorphous Crystals Urine Bacteria Hyaline Casts Urine Yeast (Budding) Ur Culture Indicated? Ur Random Creatinine Ur Random Sodium Ur Random Potassium Ur Random Chloride Misc Test Result Platelets confirmed Quality Measures Quality Measures VTE prophylaxis Assessment & Plan Assessment Current Active Medications: Generic Name Dose Route Start Last Admin Trade Name Freq PRN Reason Stop Dose Admin Acetaminophen 650 mg 09/07/25 00:54 Acetaminophen 325 Mg Tablet PO 10/07/25 00:53 Q6H PRN Fever >100.4 or pain 1-3 Dextrose 25 ml 09/07/25 01:01 Dextrose 50%-Water Inj 50 Ml Syringe IV 10/07/25 01:00 Q15MIN PRN BG 50-70 responsive npo pt Dextrose 50 ml 09/07/25 01:01 Dextrose 50%-Water Inj 50 Ml Syringe IV 10/07/25 01:00 Q15MIN PRN BG <50 OR BG <70 & pt unresponsive Docusate Sodium 100 mg 09/07/25 09:00 09/07/25 08:59 Docusate Sod 100 Mg Capsule PO 10/07/25 08:59 100 mg QDAY TEJAS Administration Protocol Famotidine 20 mg 09/07/25 09:00 09/07/25 08:59 Famotidine Inj 10 Mg/Ml Vial 2 Ml IVP 10/07/25 08:59 20 mg Q12HR TEJAS Administration Glucagon 1 mg 09/07/25 01:01 Glucagon Inj 1 Mg Vial IM Q15MIN PRN BG <70, and no IV access Heparin Sodium (Porcine) 5,000 unit 09/07/25 09:00 09/07/25 09:00 Heparin Sod Inj 5000 Unit/Ml Vial SC 09/21/25 08:59 5,000 unit Q12HR TEJAS Administration Ceftriaxone Sodium/Dextrose 1 gm in 50 mls @ 100 mls/hr 09/08/25 21:00 Rocephin/D5w 1gm Iv Premix IV 09/15/25 20:59 HS TEJAS Insulin Human Lispro 0 unit 09/07/25 07:30 09/07/25 07:43 Insulin Lispro (Admelog) 1 Unit/0.01 Ml Unit SC 10/07/25 07:29 3 unit ACHS TEJAS Administration Protocol Ondansetron HCl 4 mg 09/07/25 00:54 Ondansetron Inj 2 Mg/Ml Inj 2 Ml IVP 10/07/25 00:53 Q6H PRN NAUSEA OR VOMITING Protocol Plan 60-year-old female patient with significant history of hypertension, came in for evaluation regarding lower abdominal pain, fever chills diarrhea headache generalized weakness. Patient admitted for sepsis workup and UTI antibiotics. #Sepsis, 2/2 #Acute cystitis/UTI #Lactic acidosis, resolved Sepsis due to UTI with acute sepsis-related organ dysfunction as evidence by creatinine 3.0 HR>90 WBC >12,000 and lactic acidosis. 3 days of lower abdominal pain, fever chills diarrhea headache generalized weakness. Patient had diffuse abdominal tenderness and CVA tenderness on exam without nausea. CBC WBC 36.7 Lactic acid 2.3. UA yellow, turbid protein +2 Blood +2 LE + RBC 24 WBC 841 B acteria +4 Hyaline 4 Yeast +. CTAP 2 mm nonobstructing right renal calculus. Perinephric stranding consider urinary tract infection. Thickening of the urinary bladder wall. Given IV fluids in ED Rx: -FUP urine cx:___ -FUP blood cx:___ -FUP cocci:____ Dx: -Fluconazole 400 mg PO x 1 -Ceftriaxone 1 g IV qD [09/06--] -IVF maintenance -Bladder scans PRN #Leukocytosis #Normocytic anemia #Thrombocytopenia 09/07 admission WBC 36.7, hemoglobin 10.9 (MCV 88, RDW 36.9), platelet count 104 Leukocytosis is likely in part 2/2 acute infection but the magnitude of the leukocytosis is concerning for malignant etiologies, especially in the setting of anemia and thrombocytopenia Dx: -09/06 peripheral blood smear ordered, showed ___ Rx: -Treat UTI with IV antibiotics as described above #CHRISTINE #Hyperuremia #Hypo-osmolar hyponatremia, resolving Cr 3.0, Na 118 --> corrected sodium 122mEq/L per Cullen, 1973 vs 124 mEq/L Carmen, 1999) Osmolality 263 (L). Ur random creatinine 176 Ur random sodium 32.4 Ur random K 51 Ur random chlorine 22.6. Most likely secondary to intractable vomiting and diarrhea over the last 3 days. Plan: -Na checks Q4H -IVF maintenance -Goal to correct 6-8 mEq/L over 24 hours: goal is corrected Na of 130. -Continue maintenance IVF #NSTEMI type II- resolved Most likely secondary to demand ischemia. Trops 0.095 --> 0.082 #Hyperglycemia #Hx of T2DM not on insulin Glucose 342. Not taking her metformin for 2-3 months. NVD and headaches could be due to uncontrolled diabetes. Will treat sepsis and make diagnostic indication pending resolution of symptoms with antibiotics vs. diabetes management. Dx: -Hemoglobin A1c this admission 8.8 Rx: -ISS step 2 -Bedside glucose ACHS #Small calcified R thyroid nodule (incidental finding on CTAP) 09/06 CTAP showed small calcified right thyroid nodules Dx: -09/06 TSH and T4 ordered, both WNL Rx: -FUP outpatient Health Maintenance: Code status: Full DVT prophylaxis: Heparin subq GI prophylaxis: Famotidine Diet: Carb consistent Sánchez: No Lines: PIV Supplemental O2: NC Disposition: Tele for sepsis 2/2 UTI most likely Patient seen and reviewed with attending Dr. Bronson Acuna DO PGY-1 Attending Provider Attestation/Addendum I have examined the patient, reviewed labs and imaging findings, discussed the case with the resident(s), and reviewed entered orders. I agree with the plan of care as outlined in this note, with these additional summaries/recommendations: Patient seen at bedside. Patient admitted overnight for sepsis secondary to urinary tract infection/pyelonephritis. Evidence of endorgan damage with CHRISTINE. Significant leukocytosis still present and 35.9 today. Continue IV antibiotic and follow-up culture results when available. Continue antipyretics and anti- inflammatories as needed. Order peripheral blood smear given the severity of leukocytosis. Patient diagnosed with acute kidney injury. On admission creatinine 3.0. Most likely prerenal azotemia in the setting of sepsis. Continue IV fluids and repeat renal panel in AM. Avoid nephrotoxic agents and renally dose medications. Hypoosmolar hyponatremia present secondary to poor oral intake and dehydration. Continue IVF and slow correction. Troponinemia present although troponin peaked at 0.095. Currently patient has no cardiac complaints and no ST changes indicative of acute ischemia. Most likely secondary to demand ischemia no further intervention needed at this time. Continue insulin sliding scale for diabetes mellitus type 2 with Accu-Cheks. Order A1c. Target blood sugar of 140-180 while hospitalized. Patient was noted to have calcified right thyroid nodule which is a incidental finding and should complete thyroid ultrasound outpatient. TSH and free T4 within normal limits. Patient updated on plan and agreement. All questions answered to satisfaction. Please see residents note for additional details and management. Dr. Bronson MD
[2025-09-07] MEDS: FLUCONAZOLE 100 MG TABLET 400 MG PO (11:52)
[2025-09-07 13:23] LABS: Sodium 124 mMol/L (136-145)
[2025-09-07 13:43] LABS: Cocci Serology, IgM Negative (Negative)
[2025-09-07 17:50] LABS: Sodium 126 mMol/L (136-145)
[2025-09-07 21:39] LABS: Sodium 127 mMol/L (136-145)
[2025-09-08] VITALS (9 sets, daily range): BP systolic 138–162; BP diastolic 69–91; PULSE 76–96; RESP 12–98; TEMP 36.6–37.1; O2SAT 92–94; BMI 25.6
[2025-09-08 05:43] LABS: Basophils # (Auto) 0.1 Thou/mm3 (0.0-0.2); Basophils % (Auto) 0 % (0-2.5); Eosinophils # (Auto) 0.0 Thou/mm3 (0.0-0.5); Eosinophils % (Auto) 0 % (0-10); Hematocrit 30.0 % (36.0-46.0); Hemoglobin 10.7 g/dL (12.0-16.0); Immature Granulocytes Auto 0.13 Thou/mm3 (0.00-0.00); Lymphocytes # (Auto) 1.3 Thou/mm3 (1.0-4.8); Lymphocytes % (Auto) 6 % (10-50); Mean Corpuscular HGB Conc 35.7 g/dl (31.0-37.0); Mean Corpuscular Hemoglobin 31.8 pg (25.0-35.0); Mean Corpuscular Volume 89 fL (80-100); Monocytes # (Auto) 0.9 Thou/mm3 (0.0-0.8); Monocytes % (Auto) 4 % (0-12); Neutrophils # (Auto) 19.1 Thou/mm3 (1.8-7.7); Neutrophils % (Auto) 89 % (37-80); Nucleated Red Blood Cell # 0.00 Thou/mm3 (0.00-0.00); Nucleated Red Blood Cell % 0 /100 WBC (0); Platelet Count 92 Thou/mm3 (140-440); RDW Standard Deviation 38.0 fL (36.4-46.3); Red Blood Count 3.37 Miln/mm3 (4.00-5.20); White Blood Count 21.4 Thou/mm3 (3.6-11.0)
[2025-09-08 06:28] LABS: Alanine Aminotransferase 13 U/L (10-49); Albumin, Serum 3.4 gm/dL (3.4-4.8); Albumin/Globulin Ratio 1.4 (1.2-2.2); Alkaline Phosphatase 104 U/L (46-116); Anion Gap 10 (7-16); Aspartate Amino Transferase 32 U/L (0-34); BUN/Creatinine Ratio 24 Ratio (12-20); Bilirubin,Total 0.6 mg/dL (0.3-1.2); Blood Urea Nitrogen 51 mg/dL (9-23); Calcium 8.8 mg/dL (8.3-10.6); Calcium (Corrected) 9.3 mg/dL (8.5-10.1); Carbon Dioxide 20.9 mMol/L (20.0-31.0); Chloride 98 mMol/L (98-107); Creatinine (Component) 2.1 mg/dL (0.6-1.3); Estimated Creatinine Clearance 25.0 mL/min (>60); Globulin 2.4 gm/dL (2.3-3.5); Glucose 106 mg/dL (74-106); Magnesium 2.0 mg/dL (1.6-2.6); Osmolality,Calculated 272 (275-295); Phosphorous 2.8 mg/dL (2.4-5.1); Potassium 4.4 mMol/L (3.4-5.1); Sodium 129 mMol/L (136-145); Total Protein 5.8 gm/dL (5.7-8.2); eGFR 26 See Note
[2025-09-08] MEDS: DOCUSATE SOD 100 MG CAPSULE PO (08:07)
[2025-09-08] MEDS: FAMOTIDINE INJ 10 MG/ML VIAL 2 ML 20 MG IVP ×2 (08:08→20:15)
[2025-09-08] MEDS: HEPARIN SOD INJ 5000 UNIT/ML VIAL SC ×2 (08:08→20:15)
--- NOTE | 2025-09-08 10:33 | ESPR_ITS ---
<Statement entered by Ritu Alvarez MD - 09/08/25 15:21> Patient was seen and examined by me personally. I have directly supervised and reviewed documentation by the team resident and agree with its findings with any exceptions or additional findings as below. Plan of care was discussed with the attending, Dr. Dobson. Patient seen at bedside, appears clinically improving, states that she feels better and denies pain or febrile episodes. WBC has downtrended from 35.9 to 21.4 and hyponatremia has uptrended appropriately to 129, will stop trending and monitor qday. Creatinine improved from 2.8 to 2.1. Blood cultures are growing gram negative rods in 2/2 cultures, however will continue with ceftriaxone 1 g qday as patient has already had good clinical response and UpToDate dosing recommends either 1-2 g qday for bacteremia. Pending final urine culture and sensitivities. Ritu Alvarez, PGY-3 Documentation for date of: 09/08/25 Subjective Subjective Interval history: No overnight events. Patient was examined at bedside; they appear A&Ox3 and in NAD. Today, she reports feeling better and denies any dysuria or continued fevers. Vitals/labs today significant for BP 156/88, WBC 35.9->21.4, platelet count 92, sodium 129, creatinine 2.8->2.1. Physical exam was non-contributory. 09/07 BCx has resulted and showed 2/2 GNR growth. However, patient will continue being treated with Rocephin 1 g IV qD as leukocytosis has markedly down-trended and patient appears markedly clinically improved suggesting that this antibiotic regimen is adequate (per UpToDate, GNR bacteremia can be treated with either 1 or 2 g of Rocephin IV anyways). Antibiotics will be de-escalated or modified as guided by pending final UCx and sensitivities. Otherwise, patient's hyponatremia has essentially resolved at 129 and her creatinine has improved greatly. Exam Vital Signs Temp Pulse Resp BP Pulse Ox O2 Del Method 98.2 F 83 16 158/86 H 92 L Room Air 09/08/25 08:00 09/08/25 08:00 09/08/25 08:00 09/08/25 08:00 09/08/25 08:00 09/08/25 08:00 Narrative Exam GENERAL APPEARANCE: AOx3. NAD, activity normal for age, well developed/ well nourished, no cyanosis, pallor, or diaphoresis. HEENT: Normocephalic atraumatic, no facial trauma, neck is supple. Lids/conjunctiva normal. Mucous membranes moist, nares normal, lips/teeth normal uvula midline without oral pharyngeal erythema, exudate or swelling TMs normal bilaterally. No lymphangitis/lymphedema. CARDIAC: Tachycardic, S1+S2 heard. No murmurs, rubs, or gallops noted RESPIRATORY: respiratory effort normal, speaks in full sentences, no tripod position, no accessory muscle use. Lungs clear to auscultation without rhonchi, wheezes, rales ABDOMINAL: NBS. Soft, ND, mild tenderness to palpation of suprapubic region. No evidence of fluid wave. No pulsatile masses on exam, rebound tenderness or pain over Mcburney's point. Shaw Sign's (-) MUSCLES/EXTREMITIES: No abnormal range of motion, no swelling. DERM: Warm, pink and dry. No rashes, dermatoses, petechiae or lesions. NEUROLOGICAL: Speech is clear and appropriate. Normal level of consciousness. Gait and coordination are normal. 5/5 strength in all extremities. PSYCH: Normal mood and affect. Judgment/competence is appropriate : +CVA tenderness no nausea from CVA tapping Objective Labs 09/08/25 05:14 09/08/25 05:14 Labs: Laboratory Results - last 24 hr 09/06/25 09/07/25 09/07/25 23:25 10:12 12:48 WBC RBC Hgb Hct MCV MCH MCHC RDW Std Deviation Plt Count Neut % (Auto) Lymph % (Auto) [place] % (Auto) Eos % (Auto) Baso % (Auto) Neut # (Auto) Lymph # (Auto) [place] # (Auto) Eos # (Auto) Baso # (Auto) Immature Gran # (Auto) Absolute Nucleated RBC Immature Gran % Nucleated RBC % Sodium 124 L 124 L Potassium Chloride Carbon Dioxide Anion Gap BUN Creatinine Estim Creat Clear Calc eGFR BUN/Creatinine Ratio Glucose Calculated Osmolality Calcium Corrected Calcium Phosphorus Magnesium Total Bilirubin AST ALT Alkaline Phosphatase Total Protein Albumin Globulin Albumin/Globulin Ratio Coccidioides IgM Ab Negative 09/07/25 09/07/25 09/08/25 17:10 21:12 05:14 WBC 21.4 H D RBC 3.37 L Hgb 10.7 L Hct 30.0 L MCV 89 MCH 31.8 MCHC 35.7 RDW Std Deviation 38.0 Plt Count 92 L Neut % (Auto) 89 H Lymph % (Auto) 6 L [place] % (Auto) 4 Eos % (Auto) 0 Baso % (Auto) 0 Neut # (Auto) 19.1 H Lymph # (Auto) 1.3 [place] # (Auto) 0.9 H Eos # (Auto) 0.0 Baso # (Auto) 0.1 Immature Gran # (Auto) 0.13 H Absolute Nucleated RBC 0.00 Immature Gran % 1 H Nucleated RBC % 0 Sodium 126 L 127 L 129 L Potassium 4.4 Chloride 98 Carbon Dioxide 20.9 Anion Gap 10 BUN 51 H Creatinine 2.1 H D Estim Creat Clear Calc 25.0 L eGFR 26 L BUN/Creatinine Ratio 24 H Glucose 106 D Calculated Osmolality 272 L Calcium 8.8 Corrected Calcium 9.3 Phosphorus 2.8 Magnesium 2.0 Total Bilirubin 0.6 AST 32 ALT 13 Alkaline Phosphatase 104 Total Protein 5.8 Albumin 3.4 Globulin 2.4 Albumin/Globulin Ratio 1.4 Coccidioides IgM Ab Quality Measures Quality Measures VTE prophylaxis Assessment & Plan Assessment Current Active Medications: Generic Name Dose Route Start Last Admin Trade Name Freq PRN Reason Stop Dose Admin Acetaminophen 650 mg 09/07/25 00:54 Acetaminophen 325 Mg Tablet PO 10/07/25 00:53 Q6H PRN Fever >100.4 or pain 1-3 Dextrose 25 ml 09/07/25 01:01 Dextrose 50%-Water Inj 50 Ml Syringe IV 10/07/25 01:00 Q15MIN PRN BG 50-70 responsive npo pt Dextrose 50 ml 09/07/25 01:01 Dextrose 50%-Water Inj 50 Ml Syringe IV 10/07/25 01:00 Q15MIN PRN BG <50 OR BG <70 & pt unresponsive Docusate Sodium 100 mg 09/07/25 09:00 09/08/25 08:07 Docusate Sod 100 Mg Capsule PO 10/07/25 08:59 100 mg QDAY TEJAS Administration Protocol Famotidine 20 mg 09/07/25 09:00 09/08/25 08:08 Famotidine Inj 10 Mg/Ml Vial 2 Ml IVP 10/07/25 08:59 20 mg Q12HR TEJAS Administration Glucagon 1 mg 09/07/25 01:01 Glucagon Inj 1 Mg Vial IM Q15MIN PRN BG <70, and no IV access Heparin Sodium (Porcine) 5,000 unit 09/07/25 09:00 09/08/25 08:08 Heparin Sod Inj 5000 Unit/Ml Vial SC 09/21/25 08:59 5,000 unit Q12HR TEJAS Administration Ceftriaxone Sodium/Dextrose 1 gm in 50 mls @ 100 mls/hr 09/08/25 21:00 Rocephin/D5w 1gm Iv Premix IV 09/15/25 20:59 HS [facility] Insulin Human Lispro 0 unit 09/07/25 07:30 09/08/25 07:05 Insulin Lispro (Admelog) 1 Unit/0.01 Ml Unit SC 10/07/25 07:29 Not Given ACHS [facility] Protocol Ondansetron HCl 4 mg 09/07/25 00:54 Ondansetron Inj 2 Mg/Ml Inj 2 Ml IVP 10/07/25 00:53 Q6H PRN NAUSEA OR VOMITING Protocol Plan 60-year-old female patient with significant history of hypertension, came in for evaluation regarding lower abdominal pain, fever chills diarrhea headache generalized weakness. Patient admitted for sepsis workup and UTI antibiotics. #Sepsis, 2/2 #Acute cystitis/UTI, resolving #Lactic acidosis, resolved Sepsis due to UTI with acute sepsis-related organ dysfunction as evidence by creatinine 3.0 HR>90 WBC >12,000 and lactic acidosis. 3 days of lower abdominal pain, fever chills diarrhea headache generalized weakness. Patient had diffuse abdominal tenderness and CVA tenderness on exam without nausea. CBC WBC 36.7 Lactic acid 2.3. UA yellow, turbid protein +2 Blood +2 LE + RBC 24 WBC 841 B acteria +4 Hyaline 4 Yeast +. CTAP 2 mm nonobstructing right renal calculus. Perinephric stranding consider urinary tract infection. Thickening of the urinary bladder wall. Given IV fluids in ED Rx: -FUP urine cx:___ -FUP blood cx: grew 2/2 GNR -FUP cocci: negative Dx: -Ceftriaxone 1 g IV qD [09/06--] -s/p Fluconazole 400 mg PO x 1 on 09/07 -IVF maintenance -Bladder scans PRN #Leukocytosis, resolving #Normocytic anemia #Thrombocytopenia 09/07 admission WBC 36.7, hemoglobin 10.9 (MCV 88, RDW 36.9), platelet count 104 Leukocytosis is likely in part 2/2 acute infection but the magnitude of the leukocytosis was initially concerning for malignant etiologies, especially in the setting of anemia and thrombocytopenia Dx: -09/06 peripheral blood smear ordered, showed reactive leukocytosis with left shift, mild normocytic anemia without hemolysis, and mild thrombocytopenia Rx: -Treat UTI with IV antibiotics as described above #CHRISTINE, resolving #Hypo-osmolar hyponatremia, resolved Cr 3.0, Na 118 --> corrected sodium 122mEq/L per Cullen, 1973 vs 124 mEq/L Carmen, 1999) Osmolality 263 (L). Ur random creatinine 176 Ur random sodium 32.4 Ur random K 51 Ur random chlorine 22.6. Most likely secondary to intractable vomiting and diarrhea over the last 3 days. Hyponatremia has resolved as of 09/08 at sodium of 129 Plan: -Discontinued Na checks Q4H #NSTEMI type II- resolved Most likely secondary to demand ischemia. Trops 0.095 --> 0.082 #Hyperglycemia #Hx of T2DM not on insulin Glucose 342. Not taking her metformin for 2-3 months. NVD and headaches could be due to uncontrolled diabetes. Will treat sepsis and make diagnostic indication pending resolution of symptoms with antibiotics vs. diabetes management. Dx: -Hemoglobin A1c this admission 8.8 Rx: -ISS step 2 -Bedside glucose ACHS #Small calcified R thyroid nodule (incidental finding on CTAP) 09/06 CTAP showed small calcified right thyroid nodules Dx: -09/06 TSH and T4 ordered, both WNL Rx: -Follow-up outpatient Health Maintenance: Code status: Full DVT prophylaxis: Heparin subq GI prophylaxis: Famotidine Diet: Carb consistent Sánchez: No Lines: PIV Supplemental O2: NC Disposition: Tele for sepsis 2/2 UTI most likely Patient seen and reviewed with attending Dr. Bronson Acuna, DO PGY-1 Attending Provider Attestation/Addendum I have examined the patient, reviewed labs and imaging findings, discussed the case with the resident(s), and reviewed entered orders. I agree with the plan of care as outlined in this note, with these additional summaries/recommendations: Patient & patients sister seen at bedside. No acute overnight events. She continues to report improvement in her symptoms. Blood cultures preliminarily showing gram-negative rods in both bottles. Patient now diagnosed with bacteremia as well and we will await speciation. Patient admitted for sepsis secondary to urinary tract infection/pyelonephritis. Evidence of endorgan damage with CHRISTINE. Significant leukocytosis still present although improving. Continue IV antibiotic and follow-up culture results when available. Continue antipyretics and anti-inflammatories as needed. Order peripheral blood smear given the severity of leukocytosis. Patient diagnosed with acute kidney injury. On admission creatinine 3.0. Most likely prerenal azotemia in the setting of sepsis. Continue IV fluids and repeat renal panel in AM. Avoid nephrotoxic agents and renally dose medications. Hypoosmolar hyponatremia present secondary to poor oral intake and dehydration. Continue IVF and slow correction. Troponinemia present although troponin peaked at 0.095. Currently patient has no cardiac complaints and no ST changes indicative of acute ischemia. Most likely secondary to demand ischemia no further intervention needed at this time. Continue insulin sliding scale for diabetes mellitus type 2 with Accu-Cheks. Order A1c. Target blood sugar of 140-180 while hospitalized. Patient was noted to have calcified right thyroid nodule which is a incidental finding and should complete thyroid ultrasound outpatient. TSH and free T4 within normal limits. Patient updated on plan and agreement. All questions answered to satisfaction. Please see residents note for additional details and management. Dr. Bronson MD
--- NOTE | 2025-09-08 11:23 | PC.SS ---
Mitali Hernandez is a 60 year-old female admitted to [facility] for Sepsis 2/2 UTI. SS conducted bedside contact with the patient to complete initial assessment and to discuss discharge planning. Role and reason explained. Patient confirmed demographic information. Patient identifies dtr Joelle Hernandez [phone] as her surrogate decision maker. Pt states she is able to complete all ADL?s independently. No need for any source of DME. Pts does not possess a PCP but goes to [facility] on [address] for needs. Pharmacy of choice is [facility]. Discharge options discussed and the pt wishes to return home.? Family will provide transportation upon DC. No further intervention required at this time, social studies teacher would be available to address any further concerns. DC Plan: Home Contact: Joelle Christian Address: Confirmed on face sheet PCP: [facility] [address]
[2025-09-08 12:52] LABS: Cocci Serology, IgG Negative (Negative)
[2025-09-08] MEDS: ONDANSETRON INJ 2 MG/ML INJ 2 ML 4 MG IVP (19:14)
[2025-09-08] MEDS: ACETAMINOPHEN 325 MG TABLET 650 MG PO (19:18)
[2025-09-08] MEDS: cefTRIAXone/D5w 1gm IV premix 1 GM/50 ML BAG IV (20:14)
[2025-09-09] VITALS (7 sets, daily range): BP systolic 141–167; BP diastolic 81–88; PULSE 63–87; RESP 13–98; TEMP 35.9–36.9; O2SAT 95–98; BMI 24.8
[2025-09-09 05:16] LABS: Basophils # (Auto) 0.1 Thou/mm3 (0.0-0.2); Basophils % (Auto) 1 % (0-2.5); Eosinophils # (Auto) 0.1 Thou/mm3 (0.0-0.5); Eosinophils % (Auto) 1 % (0-10); Hematocrit 30.9 % (36.0-46.0); Hemoglobin 11.1 g/dL (12.0-16.0); Immature Granulocytes Auto 0.12 Thou/mm3 (0.00-0.00); Lymphocytes # (Auto) 1.1 Thou/mm3 (1.0-4.8); Lymphocytes % (Auto) 9 % (10-50); Mean Corpuscular HGB Conc 35.9 g/dl (31.0-37.0); Mean Corpuscular Hemoglobin 32.2 pg (25.0-35.0); Mean Corpuscular Volume 90 fL (80-100); Monocytes # (Auto) 0.9 Thou/mm3 (0.0-0.8); Monocytes % (Auto) 7 % (0-12); Neutrophils # (Auto) 10.3 Thou/mm3 (1.8-7.7); Neutrophils % (Auto) 82 % (37-80); Nucleated Red Blood Cell # 0.00 Thou/mm3 (0.00-0.00); Nucleated Red Blood Cell % 0 /100 WBC (0); Platelet Count 83 Thou/mm3 (140-440); RDW Standard Deviation 39.8 fL (36.4-46.3); Red Blood Count 3.45 Miln/mm3 (4.00-5.20); White Blood Count 12.6 Thou/mm3 (3.6-11.0)
[2025-09-09 06:09] LABS: Alanine Aminotransferase 15 U/L (10-49); Albumin, Serum 3.2 gm/dL (3.4-4.8); Albumin/Globulin Ratio 1.2 (1.2-2.2); Alkaline Phosphatase 91 U/L (46-116); Anion Gap 10 (7-16); Aspartate Amino Transferase 34 U/L (0-34); BUN/Creatinine Ratio 31 Ratio (12-20); Bilirubin,Total 0.7 mg/dL (0.3-1.2); Blood Urea Nitrogen 49 mg/dL (9-23); Calcium 8.3 mg/dL (8.3-10.6); Calcium (Corrected) 8.9 mg/dL (8.5-10.1); Carbon Dioxide 22.0 mMol/L (20.0-31.0); Chloride 101 mMol/L (98-107); Creatinine (Component) 1.6 mg/dL (0.6-1.3); Estimated Creatinine Clearance 32.3 mL/min (>60); Globulin 2.6 gm/dL (2.3-3.5); Glucose 117 mg/dL (74-106); Magnesium 2.2 mg/dL (1.6-2.6); Osmolality,Calculated 280 (275-295); Phosphorous 3.7 mg/dL (2.4-5.1); Potassium 3.8 mMol/L (3.4-5.1); Sodium 133 mMol/L (136-145); Total Protein 5.8 gm/dL (5.7-8.2); eGFR 37 See Note
[2025-09-09] MEDS: HEPARIN SOD INJ 5000 UNIT/ML VIAL SC (08:49)
[2025-09-09] MEDS: DOCUSATE SOD 100 MG CAPSULE PO (08:49)
[2025-09-09] MEDS: FAMOTIDINE INJ 10 MG/ML VIAL 2 ML 20 MG IVP (08:49)
--- NOTE | 2025-09-09 12:07 | ESDS_ITS ---
<Statement entered by Ritu Alvarez MD - 09/10/25 07:40> Patient was seen and examined by me personally. I have reviewed the below documentation by the team resident and agree with its findings with any exceptions as below. Discharge plan was discussed with the attending, Dr. Perdomo. Ritu Alvarez, PGY-3 Planned Discharge Date 09/09/25 DS: Providers Provider Date of admission: 09/07/25 00:54 Primary care physician: Physician No Primary/Family Admitting Provider: Ryan Gonzalez MD Attending Provider on Admission: Ryan Gonzalez MD Attending Provider on DC: Michael Acuna MD Discharging Provider: Michael Acuna MD DS: Diagnosis Problem List Completed Was Problem List Reviewed/Reconciled?: Yes Hospital Course Hospital Course Hospital course: Summary: 60-year-old female patient with significant history of hypertension, came in for evaluation regarding lower abdominal pain, fever chills diarrhea headache generalized weakness. Patient admitted for sepsis workup and UTI antibiotics. Hospital: During patient's hospital course, she was treated with Rocephin IV (and 1 day of fluconazole PO) for her UTI and sepsis and had her hypo-osmolar hyponatremia corrected slowly with IV NS fluids and regular monitoring of her sodium levels. Blood cultures grew 2/2 E. coli as did urine cultures but this did not change antibiotic regimen as the organism was already sensitive to Rocephin. A peripheral blood smear was ordered due to patient's severe leukocytosis with concomitant anemia and thrombocytopenia but the results were ultimately unremarkable. However, some small calcified right thyroid nodules were noted on 09/06 CTAP and patient was found to be euthyroid. By 09/09, patient was deemed clinically stabilized and discharged home with Levaquin PO to be taken in the outpatient setting for 3-4 more days for her E. coli bacteremia and UTI/pyelonephritis. Patient is safe to discharge. Further discharge instructions below. Discharge Instructions: -Please follow up with your PCP within 1 week of discharge -We are discharging you with Levaquin 750 mg which we want you to take once a day for 3 more days for complete antibiotic treatment of your urinary tract and bloodstream infection. -Your hemoglobin A1c was found to be 8.8 this admission (ideal level should be 7 or below). This suggests that your diabetes and blood glucose levels have not been well-controlled in the past 3 months and you may need to have your diabetes medications updated by your PCP. -We also found some nodules/masses on the right side of your thyroid gland and recommend that you mention this to your PCP so that they can refer you to a specialist to do workup as this finding can sometimes (but not often) be concerning for serious disease. ----- Instrucciones de kristen: - Por favor, acuda a guzmán m?dico de cabecera dentro de la semana siguiente al kristen. - Le damos de kristen con Levaquin 750 mg, que deber? nhung viral vez al d?a ezekiel 3 d?as m?s para completar el tratamiento antibi?norah de guzmán infecci?n urinaria y del torrente sangu?scott. - Guzmán hemoglobina A1c fue de 8.8 ezekiel tish ingreso (el nivel ideal es de 7 o menos). Kermit sugiere que guzmán diabetes y ángel niveles de glucosa en chayo no martinez estado david controlados en los ?ltimos 3 meses y que guzmán m?dico de cabecera podr?a actualizar guzmán medicaci?n para la diabetes. - Tambi?n encontramos algunos n?dulos/masas en el lado derecho de guzmán gl?ndula tiroides y le recomendamos que se lo comente a guzmán m?dico de cabecera para que pueda derivarlo a un especialista para que realice las pruebas necesarias, ya que tish hallazgo a veces (aunque no con frecuencia) puede ser preocupante y podr?a indicar viral enfermedad grave. Hospital Diagnoses: #Sepsis, 2/2 #Acute cystitis/UTI, resolving #Lactic acidosis, resolved #Leukocytosis, resolving #Normocytic anemia #Thrombocytopenia #CHRISTINE, resolving #Hypo-osmolar hyponatremia, resolved #NSTEMI type II- resolved #Hyperglycemia #Hx of T2DM not on insulin #Small calcified R thyroid nodule (incidental finding on CTAP) Status at Discharge Cognitive/Behavioral Status at Discharge: stable Functional Status at Discharge: independent ambulation Overall Status at Discharge: patient is back to baseline Patient's care plan was discussed with my attending, Dr. Perdomo, and senior resident, Dr. Alvarez. Michael Acuna, DO Internal Medicine, PGY-1 Time Spent with Patient Time attestation: Total time spent providing and/or coordinating discharge services: Time spent: Greater than 30 minutes Exam Vital Signs Temp Pulse Resp BP Pulse Ox O2 Del Method 97.9 F 81 21 H 167/88 H 98 Room Air 09/09/25 08:00 09/09/25 08:49 09/09/25 08:00 09/09/25 08:49 09/09/25 08:00 09/09/25 08:00 Narrative Exam GENERAL APPEARANCE: AOx3. NAD, activity normal for age, well developed/ well nourished, no cyanosis, pallor, or diaphoresis. HEENT: Normocephalic atraumatic, no facial trauma, neck is supple. Lids/conjunctiva normal. Mucous membranes moist, nares normal, lips/teeth normal uvula midline without oral pharyngeal erythema, exudate or swelling TMs normal bilaterally. No lymphangitis/lymphedema. CARDIAC: Tachycardic, S1+S2 heard. No murmurs, rubs, or gallops noted RESPIRATORY: respiratory effort normal, speaks in full sentences, no tripod position, no accessory muscle use. Lungs clear to auscultation without rhonchi, wheezes, rales ABDOMINAL: NBS. Soft, ND, mild tenderness to palpation of suprapubic region. No evidence of fluid wave. No pulsatile masses on exam, rebound tenderness or pain over Mcburney's point. Shaw Sign's (-) MUSCLES/EXTREMITIES: No abnormal range of motion, no swelling. DERM: Warm, pink and dry. No rashes, dermatoses, petechiae or lesions. NEUROLOGICAL: Speech is clear and appropriate. Normal level of consciousness. Gait and coordination are normal. 5/5 strength in all extremities. PSYCH: Normal mood and affect. Judgment/competence is appropriate : +CVA tenderness no nausea from CVA tapping Discharge Plan Plan Patient Disposition: HOME (Self Care) Patient condition on transfer: Stable Care Plan Goals: Discharge Instructions: -Please follow up with your PCP within 1 week of discharge -We are discharging you with Levaquin 750 mg which we want you to take once a day for 3 more days for complete antibiotic treatment of your urinary tract and bloodstream infection. -Your hemoglobin A1c was found to be 8.8 this admission (ideal level should be 7 or below). This suggests that your diabetes and blood glucose levels have not been well-controlled in the past 3 months and you may need to have your diabetes medications updated by your PCP. -We also found some nodules/masses on the right side of your thyroid gland and recommend that you mention this to your PCP so that they can refer you to a specialist to do workup as this finding can sometimes (but not often) be concerning for serious disease. ----- Instrucciones de kristen: - Por favor, acuda a guzmán m?dico de cabecera dentro de la semana siguiente al kristen. - Le damos de kristen con Levaquin 750 mg, que deber? nhung viral vez al d?a ezekiel 3 d?as m?s para completar el tratamiento antibi?norah de guzmán infecci?n urinaria y del torrente sangu?scott. - Guzmán hemoglobina A1c fue de 8.8 ezekiel tish ingreso (el nivel ideal es de 7 o menos). Kermit sugiere que guzmán diabetes y ángel niveles de glucosa en chayo no martinez estado david controlados en los ?ltimos 3 meses y que guzmán m?dico de cabecera podr?a actualizar guzmán medicaci?n para la diabetes. - Tambi?n encontramos algunos n?dulos/masas en el lado derecho de guzmán gl?ndula tiroides y le recomendamos que se lo comente a guzmán m?dico de cabecera para que pueda derivarlo a un especialista para que realice las pruebas necesarias, ya que tish hallazgo a veces (aunque no con frecuencia) puede ser preocupante y podr?a indicar viral enfermedad grave. Prescriptions/Referrals Prescriptions/Med Rec: New levofloxacin 750 mg tablet 750 mg PO QDAY 3 Days Qty: 3 0RF Continued metformin [Fortamet] 1,000 mg tablet extended release 24hr 1,000 mg PO BID Discontinued sulfamethoxazole-trimethoprim [Bactrim DS] 800-160 mg tablet 1 tab PO BID Qty: 14 0RF Referrals: No Primary/Family,Physician [Primary Care Provider] Patient/Caregiver Discharge Instructions Discharge Activity: activity as tolerated Education Materials: Urinary Tract Infections in Women, Understanding Urinary Tract ..., Diabetes Exercise Plan, Diabetes: Meal Planning, Diabetes Carbs Fats Protein, ED Hyponatremia Print Language: Lithuanian Stand Alone Forms: Heather Award Info., Patient Portal Info Letter Discharge Order Discharge Orders: Discharge (Routine); Ordered 09/09/25 Ordered By: Ritu Alvarez Quality Discharge Quality Measures VTE prophylaxis and sepsis Attestestation MD Attestation I have discussed and was present for the essential components of the discharge history, physical examination, diagnosis, and discharge treatment plan with the resident. I agree with the patient's discharge care as documented by the resident and amended herein by me. Cheikh Perdomo, DO. The patient understood all discharge instructions, all questions were answered satisfactorily. The patient was instructed to return to the Emergency Department is symptoms worsened or persisted. Although this document has been carefully reviewed, there may still be some phonetic and other typographical errors. These errors are purely grammatical due to imperfections in the software program and should not be construed in any way to compromise the substance of the patient's medical care during this visit.
[2025-09-12 06:44] LABS: Osmolality, Urine* 341 mOsm/kg (50-1200)
== END 2025-09-09 15:06 | disposition home or self-care (01) | DRG 720 ==
LOC: SERX 23:45 → SERHOLD 09-07 01:34 → S2NX 09-07 01:59
PROVIDERS: Nurse Practitioner Family; Admitting Provider Student in an Organized Health Care Education/Training Program; Emergency Provider Emergency Medicine; Visit Provider Student in an Organized Health Care Education/Training Program
DX: A41.9 Sepsis, unspecified organism (principal); I10 Essential (primary) hypertension; N30.00 Acute cystitis without hematuria; N20.0 Calculus of kidney; N17.9 Acute kidney failure, unspecified; E87.1 Hypo-osmolality and hyponatremia; I21.A1 Myocardial infarction type 2; E11.65 Type 2 diabetes mellitus with hyperglycemia; D69.6 Thrombocytopenia, unspecified; D64.9 Anemia, unspecified; E86.0 Dehydration; E87.20 Acidosis, unspecified; E04.2 Nontoxic multinodular goiter; D70.9 Neutropenia, unspecified; Z79.4 Long term (current) use of insulin
CPT/HCPCS: 36415; 36600; 71045; 71250; 74176; 76705; 80048; 80053; 81001; 82436; 82570; 82803; 83036; 83605; 83735; 83935; 84100; 84133; 84295; 84300; 84436; 84443; 84484; 85025; 85730; 86331; 86635; 87040; 87077; 87086; 87186; 93005; 96361; 96365; 96366; 96375; 96376; 99284; J0696; J1644; J1815; J2405; J2543; J3490; J7030; J7120; A9270